=== PATIENT | female | born 1950 | race Caucasian/White ===

== ENCOUNTER 2017-07-25 13:51 | Outpatient (CLI) | payer OTHER ==
--- NOTE | 2017-07-25 16:12 | RAD ---
PA AND LATERAL CHESTPA AND LATERAL CHEST: HISTORY: Preop. FINDINGS: Heart size and mediastinum are within normal limits. There are atherosclerotic changes of the aorta . There is linear scarring in the left lung base. IMPRESSION: No active intrathoracic disease. POS: [facility]
[2017-07-25 17:42] LABS: #Eosinphils 0.1 thou/uL (0.0-0.7); #Lymphocytes 1.8 thou/uL (1.20-3.40); #Monocytes 0.5 thou/uL (0.11-0.59); #Neutrophils 3.4 thou/uL (1.40-6.50); %Basophils 0.8 % (0.0-1.0); %Eosinophils 2.3 % (0.0-10.0); %Lymphocytes 30.7 % (21.0-51.0); %Monocytes 7.7 % (0.0-10.0); Hematocrit 40.2 % (36.0-47.0); Mean Platelet Volume 9.7 fL (7.4-10.4); Red Blood Cell (RBC) Count 4.04 mill/uL (4.20-5.40); White Blood Cell (WBC) Count 5.8 thou/uL (4.8-10.8)
[2017-07-25 18:06] LABS: Anion Gap 14 mmol/L (10-20); BUN (Urea Nitrogen) 12 mg/dL (9.8-20.1); Calc. Creatinine Clearance 0 mL/min (70-130); Calcium 9.4 mg/dL (7.8-10.44); Carbon Dioxide 28 mmol/L (23-31); Chloride 104 mmol/L (98-107); Estimated GFR-MDRD 70
--- NOTE | 2017-07-26 09:06 | EKG ---
Test Reason : PREOP Blood Pressure : / mmHG Vent. Rate : 079 BPM Atrial Rate : 079 BPM P-R Int : 156 ms QRS Dur : 088 ms QT Int : 392 ms P-R-T Axes : 055 -53 064 degrees QTc Int : 449 ms Normal sinus rhythm Left anterior fascicular block Abnormal ECG Confirmed by VERONA RAMIREZ ([id number]) on 07/26/2017 9:06:19 AM Referred By: YVON Confirmed By:VERONA RAMIREZ
== END 2017-07-25 13:52 | disposition home or self-care (01) ==
LOC: LABBT 13:51
PROVIDERS: ATTEND Orthopaedic Surgery
DX: Z01.818 Encounter for other preprocedural examination (principal); S83.242D Other tear of medial meniscus, current injury, left knee, subsequent encounter
CPT/HCPCS: 71020; 80048; 85025; 93005; 93010

== ENCOUNTER 2017-07-27 05:50 | Day surgery (SDC) | payer OTHER ==
[2017-07-25 14:22] VITALS: BMI 36.5
[2017-07-27] MEDS ORDERED: Diprivan 20 ML ONE (06:10)
[2017-07-27] MEDS ORDERED: Lidocaine 2% w/Epinephrine 1:200K 20 ML VIAL ONE (06:31)
[2017-07-27] MEDS ORDERED: Clindamycin/D5W 900 mg/50 ml Premix Bag ONE (06:50)
[2017-07-27] MEDS ORDERED: Midazolam HCl 2 mg/2 ml Vial ONE (06:54)
[2017-07-27] MEDS ORDERED: Fentanyl 100 MCG/2 ML VIAL ONE (06:54)
[2017-07-27] MEDS ORDERED: Bupivacaine HCl 0.5%/Epinephrine 1:200,000/PF 30 ml Vial ONE (07:07)
--- NOTE | 2017-07-27 08:33 | OP ---
PREOPERATIVE DIAGNOSIS: Medial meniscus tear. 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 NARRATIVE REPORT: The patient was taken to the operating room where general anesthesia was induced. Left leg was prepped and draped in the usual sterile fashion. She received clindamycin preoperati vely. The scope was placed in the lateral portal and probe was placed in the medial portal. Findin gs were as above. I debrided the medial meniscus with basket forceps and removed most of the oil recovery unit operator ior aspect of the medial meniscus, I then smoothed it using a 4-0 full radius resector. I did use a small chondroplasty just for the unstable cartilaginous flap tears. Scope was placed in the latera l compartment. There was a parrot beak type tear of the lateral meniscus. This was debrided using basket forceps and 4-0 full radius resector. Meniscus was then probed and found to be stable. The knee was then drained. Sterile dressings applied.
== END 2017-07-27 10:45 | disposition home or self-care (01) ==
LOC: SDC 05:50
PROVIDERS: ATTEND Orthopaedic Surgery
PROC: 0SBD4ZZ Excision of Left Knee Joint, Percutaneous Endoscopic Approach (ICD-10-PCS; principal; 2017-07-27)
DX: S83.242A Other tear of medial meniscus, current injury, left knee, initial encounter (principal); M22.42 Chondromalacia patellae, left knee; Z79.82 Long term (current) use of aspirin; Z79.899 Other long term (current) drug therapy; Z88.5 Allergy status to narcotic agent; Z88.8 Allergy status to other drugs, medicaments and biological substances; Z88.0 Allergy status to penicillin; Z88.2 Allergy status to sulfonamides; Z98.890 Other specified postprocedural states
CPT/HCPCS: G8978-GP-CK; G8979-GP-CK; G8980-GP-CK; J0670; J2250; J2704; J3010; J3490

== ENCOUNTER 2017-11-28 14:05 | Outpatient (CLI) | payer BC | END 2017-11-28 14:06 | disposition home or self-care (01) | LOC: BICMAMMO 14:05 | PROVIDERS: ATTEND Obstetrics & Gynecology | DX: Z12.31 Encounter for screening mammogram for malignant neoplasm of breast (principal); Z13.820 Encounter for screening for osteoporosis | CPT/HCPCS: 77063; 77067; 77080 ==

== ENCOUNTER 2019-12-18 08:00 | Outpatient (CLI) | payer MEDICARE, OTHER ==
[2019-12-18 10:33] LABS: #Basophils 0.1 thou/uL (0.0-0.2); #Eosinphils 0.1 thou/uL (0.0-0.7); #Lymphocytes 1.3 thou/uL (1.20-3.40); #Monocytes 0.3 thou/uL (0.11-0.59); #Neutrophils 3.2 thou/uL (1.40-6.50); %Basophils 1.1 % (0.0-1.0); %Eosinophils 2.9 % (0.0-10.0); %Lymphocytes 26.3 % (21.0-51.0); %Monocytes 5.6 % (0.0-10.0); Hemoglobin 11.7 g/dL (12.0-16.0); Mean Corpuscular HGB CONC 32.3 g/dL (32.0-36.0); Mean Corpuscular Hemoglobin 31.7 pg (27.0-31.0); Mean Corpuscular Volume 98.2 fL (78.0-98.0); Platelet Count 213 thou/uL (130-400); RBC Distribution Width 12.1 % (11.5-14.5); Red Blood Cell (RBC) Count 3.68 mill/uL (4.20-5.40)
[2019-12-18 10:49] LABS: Bilirubin Negative (Negative); Blood, Urine Negative (Negative); Clarity Clear (Clear); Glucose, Urine (Dipstick) Normal (Negative); Leukocyte 250 Leu/uL (Negative); Nitrite Negative (Negative); Protein, Urine (Dipstick) 20 mg/dL (Neg-Trace); RBC/HPF 0-3 HPF (0-3); Urobilinogen Normal mg/dL (Less than 2)
[2019-12-18 10:50] LABS: INR-International Normal Ratio 0.9; Prothrombin Time 12.5 SEC (12.0-14.7)
[2019-12-18 10:56] LABS: Anion Gap 13 mmol/L (10-20); BUN (Urea Nitrogen) 18 mg/dL (9.8-20.1); Calc. Creatinine Clearance 0 mL/min (70-130); Calcium 8.7 mg/dL (7.8-10.44); Carbon Dioxide 25 mmol/L (23-31); Chloride 107 mmol/L (98-107); Estimated GFR-MDRD 76; Glucose 93 mg/dL (80-115); Potassium 4.4 mmol/L (3.5-5.1); Sodium 141 mmol/L (136-145)
[2019-12-18 11:00] LABS: Bacteria/HPF 2+ HPF (None Seen); Mucous/LPF 1+ LPF (<2+); Transitional Epithelial 0-3 HPF (None Seen)
--- NOTE | 2019-12-18 17:03 | EKG ---
Test Reason : Blood Pressure : / mmHG Vent. Rate : 069 BPM Atrial Rate : 069 BPM P-R Int : 146 ms QRS Dur : 084 ms QT Int : 434 ms P-R-T Axes : 048 -37 033 degrees QTc Int : 465 ms Normal sinus rhythm Left axis deviation Abnormal ECG Confirmed by BONNIE CALDERON ([id number]) on 12/18/2019 5:03:11 PM Referred By: VYON Confirmed By:BONNIE CALDERON
== END 2019-12-18 08:01 | disposition home or self-care (01) ==
LOC: LABBT 08:00
PROVIDERS: ATTEND Orthopaedic Surgery
DX: Z01.818 Encounter for other preprocedural examination (principal); M16.11 Unilateral primary osteoarthritis, right hip
CPT/HCPCS: 80048; 81001; 85025; 85610; 87081; 93005; 93010

== ENCOUNTER 2019-12-18 08:45 | Inpatient (IN) | payer MEDICARE, OTHER ==
[2019-12-18 09:32] VITALS: BMI 35.7
[2019-12-30] MEDS ORDERED: Tranexamic Acid 1,000 MG/10 ML VIAL ONE (07:05)
[2019-12-30] MEDS ORDERED: Levofloxacin 500 mg/D5W 100 ml Premix Bag ONE (07:05)
[2019-12-30] MEDS ORDERED: Vancomycin 1.5 GRAM/300 ML BAG 1.5 GM/300 ML BAG ONE (07:05)
[2019-12-30] MEDS ORDERED: Sodium Chloride 0.9% 100 ML ONE (07:07)
[2019-12-30] MEDS ORDERED: traMADol HCl 50 MG TAB PO PRN ×4 (07:11→08:30)
[2019-12-30] MEDS ORDERED: Ondansetron PF 4 MG/2 ML Vial IVP PRN ×2 (07:11→08:30)
[2019-12-30] MEDS ORDERED: diphenhydrAMINE 25 MG CAP PO PRN (07:11)
[2019-12-30] MEDS ORDERED: Promethazine HCl 25 MG/ML VIAL IM PRN ×3 (07:11→11:05)
[2019-12-30] MEDS ORDERED: Zolpidem Tartrate 5 MG TAB PO PRN ×2 (07:11→08:30)
[2019-12-30] MEDS ORDERED: Acetaminophen 325 MG TAB PO PRN (07:11)
[2019-12-30] MEDS ORDERED: Docusate 100 MG CAP PO PRN (07:13)
[2019-12-30] MEDS ORDERED: Ondansetron ODT 4 MG TAB PO PRN (07:13)
[2019-12-30] MEDS ORDERED: Fentanyl 100 MCG/2 ML VIAL ONE ×3 (08:03→11:21)
[2019-12-30] MEDS ORDERED: Midazolam HCl 2 mg/2 ml Vial ONE (08:03)
[2019-12-30] MEDS ORDERED: Naloxone HCl 0.4 mg/ml Vial IVP PRN (08:30)
[2019-12-30] MEDS ORDERED: Bupivacaine 0.25% 10 ML VIAL EPIDURAL PRN (08:30)
[2019-12-30] MEDS ORDERED: Promethazine HCl 25 MG SUPP PR PRN (08:30)
[2019-12-30] MEDS ORDERED: Naloxone HCl 0.4 mg/ml Vial IV PRN (08:30)
[2019-12-30] MEDS ORDERED: diphenhydrAMINE 50 MG/ML VIAL IM PRN (08:30)
[2019-12-30] MEDS ORDERED: Hydrocerin (Eucerin) Cream 120 gm Jar TOP PRN (08:30)
[2019-12-30] MEDS ORDERED: Ropivacaine 0.2% HCl/PF 20 ML ONE (09:22)
[2019-12-30] MEDS ORDERED: Dexamethasone 20 MG/5 ML VIAL ONE (10:43)
[2019-12-30] MEDS ORDERED: Rocuronium Bromide 10 MG/ML (10ML VIAL) ONE (10:43)
[2019-12-30] MEDS ORDERED: PROPOFOL 200 MG/20 ML VIAL ONE (10:43)
[2019-12-30] MEDS ORDERED: EPHEDRINE 25 MG/5 ML SYRINGE ONE (10:43)
[2019-12-30] MEDS ORDERED: Lidocaine 1.5% w/Epi 1:200K 30 ML VIAL (Epid Use) ONE (10:43)
[2019-12-30] MEDS ORDERED: Glycopyrrolate 0.2 MG/ML 5 ML SYRINGE ONE (10:43)
[2019-12-30] MEDS ORDERED: Ondansetron PF 4 MG/2 ML Vial ONE (10:43)
[2019-12-30] MEDS ORDERED: Lidocaine 1% PF 5 ML VIAL ONE (10:43)
[2019-12-30] MEDS ORDERED: Promethazine HCl 25 MG/ML VIAL SLOW IVP PRN (11:05)
[2019-12-30] MEDS ORDERED: Ondansetron HCl/PF 4 MG/2 ML Vial IVP PRN (11:05)
--- NOTE | 2019-12-30 11:19 | OP ---
DATE OF PROCEDURE: 12/30/2019 This is Jon Juares PA-C dictating for Flynn Mcmillan MD. ANESTHESIA: General via endotracheal tube, augmented with indwelling epidural. PREOPERATIVE DIAGNOSIS: End-stage bicompartmental osteoarthritis, right hip. POSTOPERATIVE DIAGNOSIS: End-stage bicompartmental osteoarthritis, right hip. PROCEDURE: Press-fit right total hip arthroplasty. SURGEON: Flynn Mcmillan MD TELE RN: Jon Juares PA-C COMPONENTS USED: [employer] Accolade II press-fit size 4 hip stem with a Trident PSL press-fit 50-mm acetabular shell, a 36-mm fixed bearing polyethylene, 10 degree insert, and a V40 ceramic femoral head with a -2.5 neck length. ESTIMATED BLOOD LOSS: 200 mL. SPECIMENS: None. DRAINS: None. COMPLICATIONS: None. COUNTS: Correct. FINDINGS: End-stage severe degenerative bicompartmental disease, [id number] arthrosis, periarticular osteophyte formation, large serous effusion, and hypertrophic synovium, changes consistent with chronic osteoarthritis. INDICATIONS FOR SURGERY: Gabrielle is a 69-year-old female who has had progressive right hip, groin,and thigh pain for the last 5 to 7 years. She has failed conservative management and elected to proceed with total hip arthroplasty as a definitive treatment of her pain. PROCEDURE IN DETAIL: After informed consent was obtained in the preoperative holding area, the patient was taken to the operative suite where general anesthesia was induced. The patient was then positioned in the lateral decubitus position. The hip was then prepped and draped in usual sterile fashion. The patient received preoperative antibiotics. Prior to incision, time-out was called and all members of the surgical team agreed upon site, surgeon, and patient. After this, a longitudinal incision was made directly over the trochanter, noted by palpation extending 2 fingerbreadths above and below the trochanter. The deeper subcutaneous layer was undermined with Bovie electrocautery. The iliotibial band was encountered and incised sharply and the plane below this was developed bluntly. A Charnley retractor was placed to hold this opened. The lateral aspect of the trochanter and the abductor muscles were encountered and then reflected anteriorly off the trochanter using Bovie electrocautery. Once this was completed, the anterior capsule was then encountered and identified and copious capsulotomy was carried out, exposing the femoral neck and head. Dislocation maneuver was then performed and an in situ provisional neck cut was then made using the oscillating saw. Attention was then turned to acetabular preparation. Sequential reaming was carried out up to the appropriate diameter and a trial was then malleted into place with good firm resistance and no pullout. The permanent acetabular shell was then malleted squarely into place, as was the appropriate liner. Once completed, the wound was copiously irrigated and attention was then turned to femoral preparation. Flexion and external rotation were performed of the exposed thigh and femoral elevators were then placed at the proximal aspect of the wound. Canal finder was used to establish the length of the canal and sequential reaming was carried out, followed by broaching. Once the appropriate stability was established with the trial broaches with flexion, extension and rotational stability, we did trial with neutral and 2 mm offset incremental necks. Once the appropriate size was decided upon, with good stability noted with flexion, extension, internal and external rotation and shuck being negative, we removed the femoral trial broach and malletted into place the permanent prosthesis with good firm fit, which was also stable to rotation. Again, the hip felt very stable to flexion, extension, internal and external rotation. Leg lengths appeared near anatomic clinically and we were quite happy with prosthesis placement. Copious irrigation was then carried out through the entirety of the wound. Primary closure of the abductors was accomplished with interrupted #2 Vicryl [id number] stitches and the IT band was then closed with interrupted #2 Vicryl, oversewn with a #2 running barbed Quill stitch. Subcutaneous fascia was closed with running barbed Quill stitch and a subcuticular Monocryl barbed Quill stitch was used for skin closure and augmented with skin cement. A sterile dressing was applied. The procedure was terminated without any complication. All counts were correct. The patient was awakened in the operative suite and taken to the recovery room in stable condition. Job ID: [id number]
--- NOTE | 2019-12-30 11:44 | RAD ---
Radiograph right hip 2 views: DATE: 12/30/2019 HISTORY: 69-year-old female with chronic right hip pain, status post surgery. FINDINGS: Metallic acetabular cup. Femoral head and neck resected and replaced with metallic prosthesis with st em that reaches proximal diaphysis. IMPRESSION: Status post total right hip replacement arthroplasty.
[2019-12-30] MEDS: diphenhydrAMINE 50 MG/ML VIAL IVP PRN ×2 (13:34→21:21)
[2019-12-30] MEDS: Sodium Chloride 0.9% 1,000 ML IV SCH (13:55)
[2019-12-30] MEDS: Multivitamin W/ Minerals 1 TAB PO SCH (13:56)
[2019-12-30] MEDS: Ketorolac Tromethamine 30 MG/ML VIAL IVP SCH ×3 (13:56→23:13)
[2019-12-30] MEDS: Aspirin 81 mg Enteric Coated Tablet PO SCH ×2 (13:56→21:26)
[2019-12-30] MEDS: Acetaminophen 500 MG TAB PO SCH ×3 (13:56→21:26)
[2019-12-30] MEDS ORDERED: Artificial Tear Sol 15 ML BOT EA EYE PRN (15:52)
--- NOTE | 2019-12-30 16:26 | PDOC.HOSPP ---
- Subjective Encounter Date: 12/30/19 Encounter Time: 16:23 Subjective: Patient seen and examined. s/p Right TKR. Reports mild pruritis. Denies SOB or chest pain. States that pain control is good. Denies any dysuria. Consulted for medical management. - Objective Vital Signs & Weight: Vital Signs (12 hours) Temp Pulse Resp BP Pulse Ox 12/30/19 13:15 97.5 F L 66 16 125/74 99 Weight Weight 235 lb Additional Labs: 12/18/19 WBC 5 hgb 11.7 hct 36.1 plat 213 na 141 K 4.4 bun 18 creatinine .76 GFR 76 UA bacteria 2+ WBC 4-6 Leukocytes 250 EKG NSR 69 bpm EKG Reviewed by me: Yes (NSR) Hospitalist ROS - Review of Systems Constitutional: denies: fever, chills, sweats, weakness, malaise, other Respiratory: denies: cough, dry, shortness of breath, hemoptysis, SOB with excertion, pleuritic pain, sputum, wheezing, other Cardiovascular: denies: chest pain, palpitations, orthopnea, paroxysmal noc. dyspnea, edema, light headedness, other Gastrointestinal: denies: nausea, vomiting, abdominal pain, diarrhea, constipation, melena, hematochezia, other - Medication Medications: Active Medications Generic Name Dose Route Start Last Admin Trade Name Freq PRN Reason Stop Dose Admin Acetaminophen 1,000 mg 12/30/19 10:00 12/30/19 13:56 Tylenol PO Not Given Q6H [facility] Aspirin 81 mg 12/30/19 09:00 12/30/19 13:56 Ecotrin PO Not Given BID KRISH Diphenhydramine HCl 25 mg 12/30/19 08:30 12/30/19 13:34 Benadryl IVP 25 mg Q3H PRN Administration Itching Sodium Chloride 1,000 mls @ 100 mls/hr 12/30/19 07:15 12/30/19 13:55 Normal Saline 0.9% IV Not Given .Q10H [facility] Iron/Minerals/Multivitamins 1 tab 12/30/19 09:00 12/30/19 13:56 Theragran M PO Not Given DAILY [facility] Ketorolac Tromethamine 15 mg 12/30/19 12:00 12/30/19 13:56 Toradol IVP 01/01/20 06:01 Not Given Q6HR KRISH - Exam General Appearance: NAD, awake alert Eye: anicteric sclera Heart: RRR, no murmur, no gallops, no rubs, normal peripheral pulses Respiratory: CTAB, no wheezes, no rales, no ronchi Gastrointestinal: soft, non-tender, no guarding, no rigidity, diminished bowl sounds Extremities: no cyanosis, no edema Neurological: no focal deficits Psychiatric: normal affect, A&O x 3 Hosp A/P - Plan Impression: Pruritis Dry eyes Osteoarthritis s/p R THR Plan: Benadryl prn Artificial tears prn Continue ASA for DVT prophylaxis per [facility] protocol Continue PT/OT per [facility] protocol epidural per anesthesia Restart home medications
[2019-12-30] MEDS: diphenhydrAMINE 25 MG CAP PO PRN (17:15)
[2019-12-30] MEDS ORDERED: Vancomycin 1.5 GRAM/300 ML BAG 1.5 GM in Premix Bag 1 BAG IVPB SCH (20:00)
[2019-12-30] MEDS ORDERED: Vancomycin HCl 1.5 GM in Sodium Chloride 0.9% 250 ML 300 ML IVPB SCH (20:00)
[2019-12-30] MEDS ORDERED: Aspirin 81 mg Enteric Coated Tablet PO SCH (21:00)
[2019-12-31] MEDS: Sodium Chloride 0.9% 1,000 ML IV SCH ×4 (00:19→23:03)
[2019-12-31] MEDS: diphenhydrAMINE 25 MG CAP PO PRN ×5 (00:49→23:06)
[2019-12-31] MEDS: fentaNYL Citrate/PF 500 MCG, Bupivacaine 10 ML in Sodium Chloride 0.9% 80 ML EPIDURAL SCH ×2 (01:45→17:15)
[2019-12-31] MEDS: Acetaminophen 500 MG TAB PO SCH ×4 (05:26→23:01)
[2019-12-31] MEDS: Ketorolac Tromethamine 30 MG/ML VIAL IVP SCH ×4 (05:26→23:02)
[2019-12-31 05:54] LABS: Hemoglobin 9.5 g/dL (12.0-16.0); Mean Corpuscular HGB CONC 33.1 g/dL (32.0-36.0); Mean Corpuscular Hemoglobin 33.1 pg (27.0-31.0); Mean Platelet Volume 9.7 fL (7.4-10.4); Platelet Count 162 thou/uL (130-400); RBC Distribution Width 12.1 % (11.5-14.5); Red Blood Cell (RBC) Count 2.87 mill/uL (4.20-5.40); White Blood Cell (WBC) Count 6.8 thou/uL (4.8-10.8)
[2019-12-31 06:15] LABS: Anion Gap 10 mmol/L (10-20); BUN (Urea Nitrogen) 20 mg/dL (9.8-20.1); Calc. Creatinine Clearance 109 mL/min (70-130); Carbon Dioxide 26 mmol/L (23-31); Chloride 107 mmol/L (98-107); Estimated GFR-MDRD 68; Glucose 132 mg/dL (80-115); Potassium 3.8 mmol/L (3.5-5.1); Sodium 139 mmol/L (136-145)
[2019-12-31] MEDS ORDERED: Multivitamin W/ Minerals 1 TAB PO SCH (09:00)
[2019-12-31] MEDS: Ferrous Gluconate 324 MG TAB PO SCH ×2 (09:27→20:00)
[2019-12-31] MEDS: Senokot S 8.6-50 MG TAB PO SCH ×2 (09:27→20:00)
[2019-12-31] MEDS: Aspirin 81 mg Enteric Coated Tablet PO SCH ×2 (09:27→19:59)
[2019-12-31] MEDS: Multivitamin W/ Minerals 1 TAB PO SCH (09:27)
--- NOTE | 2019-12-31 13:35 | PRG ---
DATE OF SERVICE: 12/31/2019 SUBJECTIVE: Gabrielle is a 69-year-old female, postop day 1 from right total hip arthroplasty. She has no complaints and she was comfortable last night. OBJECTIVE: VITAL SIGNS: Temperature 98.4, pulse 78, respiratory rate 18 and nonlabored, and blood pressure 109/62. GENERAL: She is alert and oriented to person, place, time, situation, responds appropriately with examiner. EXTREMITIES: Incision is clean. No strikethrough. No shortening or malrotation. LABORATORY DATA: Hemoglobin and hematocrit of 9.5 and 28.7. IMPRESSION: This is a 69-year-old female, postop day 1 right total hip arthroplasty, doing well. PLAN: Continue current care. Probable discharge home tomorrow. Job ID: [id number]
[2019-12-31] MEDS: Cholecalciferol (Vitamin D3) 125 MCG PO SCH (14:54)
--- NOTE | 2019-12-31 23:02 | PDOC.HOSPP ---
- Subjective Encounter Date: 12/31/19 Encounter Time: 14:00 Subjective: no overnight events. This afternoon feeling well after physical therapy. Endorses midly improving scratching. otherwise no complaints. - Objective Vital Signs & Weight: Vital Signs (12 hours) Temp Pulse Resp BP Pulse Ox 12/31/19 20:25 95 12/31/19 20:00 98.0 F 70 15 120/71 95 12/31/19 16:03 98.6 F 82 16 102/65 93 L Weight Admit Weight 235 lb Weight 235 lb I&O: 12/30/19 12/31/19 01/01/20 06:59 06:59 06:59 Intake Total 1780 1425 Output Total 2300 400 Balance -520 1025 Result Diagrams: 12/31/19 05:43 12/31/19 05:43 Hospitalist ROS - Review of Systems Constitutional: denies: fever, chills, sweats, weakness, malaise, other Respiratory: denies: cough, dry, shortness of breath, hemoptysis, SOB with excertion, pleuritic pain, sputum, wheezing, other Cardiovascular: denies: chest pain, palpitations, orthopnea, paroxysmal noc. dyspnea, edema, light headedness, other Gastrointestinal: denies: nausea, vomiting, abdominal pain, diarrhea, constipation, melena, hematochezia, other Genitourinary: denies: dysuria, frequency, incontinence, hematuria, retention, other - Medication Medications: Active Medications Generic Name Dose Route Start Last Admin Trade Name Freq PRN Reason Stop Dose Admin Acetaminophen 1,000 mg 12/30/19 10:00 12/31/19 15:29 Tylenol PO 1,000 mg Q6H KRISH Administration Artificial Tears 2 drop 12/30/19 15:52 12/30/19 17:13 Liquitears 15ml Bottle EA EYE 1 drop Q2H PRN Administration Dry Eyes Aspirin 81 mg 12/30/19 09:00 12/31/19 19:59 Ecotrin PO 81 mg BID KRISH Administration Diphenhydramine HCl 25 mg 12/30/19 08:30 12/31/19 19:59 Benadryl PO 25 mg Q3H PRN Administration Itching Diphenhydramine HCl 25 mg 12/30/19 08:30 12/30/19 21:21 Benadryl IVP 25 mg Q3H PRN Administration Itching Ferrous Gluconate 324 mg 12/31/19 09:00 12/31/19 20:00 Fergon PO 324 mg BID KRISH Administration Sodium Chloride 1,000 mls @ 100 mls/hr 12/30/19 07:15 12/31/19 12:21 Normal Saline 0.9% IV Not Given .Q10H [facility] Fentanyl Citrate 500 mcg/ 100 mls @ 0 mls/hr 12/30/19 08:30 12/31/19 17:15 Bupivacaine HCl 10 ml/ Sodium EPIDURAL 100 mls Chloride INF KRISH Administration As Directed Iron/Minerals/Multivitamins 1 tab 12/30/19 09:00 12/31/19 09:27 Theragran M PO 1 tab DAILY [facility] Administration Ketorolac Tromethamine 15 mg 12/30/19 12:00 12/31/19 17:40 Toradol IVP 01/01/20 06:01 15 mg Q6HR [facility] Administration Senna/Docusate Sodium 2 tab 12/31/19 09:00 12/31/19 20:00 Senokot S PO 2 tab BID KRISH Administration - Exam General Appearance: NAD, awake alert ENT: normocephalic atraumatic, no oropharyngeal lesions, moist mucosa Heart: RRR, no murmur, no gallops, no rubs, normal peripheral pulses Respiratory: CTAB, no wheezes, no rales, normal chest expansion Gastrointestinal: soft, non-tender, non-distended, normal bowel sounds Extremities: no edema Psychiatric: normal affect, normal behavior, A&O x 3 Hosp A/P - Plan #pruritus -improving; due to opioid pain management, which is being weaned down -If patient continues to have pruritus may attempt paroxetine or gabapentin Rest of management unchanged.
[2020-01-01] MEDS: Acetaminophen 500 MG TAB PO SCH ×2 (05:19→12:08)
[2020-01-01] MEDS: Ketorolac Tromethamine 30 MG/ML VIAL IVP SCH (05:20)
[2020-01-01 05:33] LABS: Hemoglobin 10.1 g/dL (12.0-16.0); Mean Corpuscular HGB CONC 31.7 g/dL (32.0-36.0); Mean Corpuscular Hemoglobin 32.1 pg (27.0-31.0); Mean Platelet Volume 10.1 fL (7.4-10.4); Platelet Count 156 thou/uL (130-400); RBC Distribution Width 12.3 % (11.5-14.5); Red Blood Cell (RBC) Count 3.14 mill/uL (4.20-5.40); White Blood Cell (WBC) Count 6.5 thou/uL (4.8-10.8)
[2020-01-01] MEDS: Aspirin 81 mg Enteric Coated Tablet PO SCH (08:48)
[2020-01-01] MEDS: Ferrous Gluconate 324 MG TAB PO SCH (08:49)
[2020-01-01] MEDS: Multivitamin W/ Minerals 1 TAB PO SCH (08:49)
[2020-01-01] MEDS: Senokot S 8.6-50 MG TAB PO SCH (08:49)
[2020-01-01 12:12] VITALS: BP 149/83; TEMP 98.7
== END 2020-01-01 13:34 | disposition home or self-care (01) | DRG 470 ==
LOC: SURG A 12-30 06:36 → SJJU 12-30 13:59
PROVIDERS: ADMIT Orthopaedic Surgery; ATTEND Orthopaedic Surgery
PROC: 0SR904A Replacement of Right Hip Joint with Ceramic on Polyethylene Synthetic Substitute, Uncemented, Open Approach (ICD-10-PCS; principal; 2019-12-31)
DX: M16.11 Unilateral primary osteoarthritis, right hip (principal); L29.9 Pruritus, unspecified; E66.9 Obesity, unspecified; T40.2X5A Adverse effect of other opioids, initial encounter; Z88.5 Allergy status to narcotic agent; Z88.8 Allergy status to other drugs, medicaments and biological substances; Z88.2 Allergy status to sulfonamides; Z68.35 Body mass index [BMI] 35.0-35.9, adult; Z88.0 Allergy status to penicillin
CPT/HCPCS: 36415; 80048; 85027; J1100; J1200; J1885; J1956; J2001; J2250; J2405; J2704; J2795; J3010; J3490; Q0163

== ENCOUNTER 2024-10-02 10:06 | Outpatient (CLI) | payer MEDICARE | END 2024-10-02 10:07 | disposition home or self-care (01) | LOC: BICMAMMO 10:06 | PROVIDERS: ATTEND Family Medicine | DX: Z12.31 Encounter for screening mammogram for malignant neoplasm of breast (principal); Z78.0 Asymptomatic menopausal state | CPT/HCPCS: 77063; 77067; 77080 ==